=== PATIENT | male | born 1980 | race Caucasian/White ===

== ENCOUNTER 2019-02-17 17:39 | Emergency (ER) | payer SELFPAY ==
[2019-02-17] MEDS ORDERED: HYDROmorphone 1 MG/ML Syringe IM ONE (18:04)
--- NOTE | 2019-02-17 18:09 | EDM.PDOC ---
ED HPI GENERAL MEDICAL PROBLEM - General Chief Complaint: Upper Extremity Injury/Pain Stated Complaint: RIGHT SHOULDER INJURY Time Seen by Provider: 02/17/19 18:00 Source of Information: Reports: Patient, Old Records, RN History Limitations: Reports: No Limitations - History of Present Illness INITIAL COMMENTS - FREE TEXT/NARRATIVE: 38 yo male fell while playing basketball directly onto the R shoulder. Has pain now to the proximal humerus area. No tx prior to arrival. Injury just prior to arrival. 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: Other (see below) (none) Right Shoulder Pain Score (Numeric/FACES): 6 - Related Data Allergies Allergy/AdvReac Type Severity Reaction Status Date / Time No Known Allergies Allergy Verified 02/17/19 17:51 Home Meds: Home Meds NK [No Known Home Meds] 02/17/19 [History] Past Medical History HEENT History: Reports: Impaired Vision Gastrointestinal History: Reports: None Neurological History: Reports: Concussion Endocrine/Metabolic History: Reports: Obesity/BMI 30+ - Past Surgical History Head Surgeries/Procedures: Reports: None HEENT Surgical History: Reports: None GI Surgical History: Reports: Appendectomy Endocrine Surgical History: Reports: None Neurological Surgical History: Reports: None Musculoskeletal Surgical History: Reports: Shoulder Surgery Dermatological Surgical History: Reports: None Social & Family History - Tobacco Use Smoking Status *Q: Never Smoker Second Hand Smoke Exposure: No - Caffeine Use Caffeine Use: Reports: Soda - Recreational Drug Use Recreational Drug Use: No Review of Systems - Review of Systems Review Of Systems: See Below Constitutional: Reports: No Symptoms Musculoskeletal: Reports: Joint Pain (R shoulder) Skin: Reports: No Symptoms Neurological: Reports: No Symptoms ED EXAM, GENERAL - Physical Exam Exam: See Below Exam Limited By: No Limitations General Appearance: Alert, WD/WN, No Apparent Distress Extremities: Normal Inspection, No Pedal Edema, Limited Range of Motion (of R shoulder due to pain. ), Other (Proximal deltoid pain on R). No: Normal Range of Motion, Non-Tender, Pedal Edema, Joint Swelling, Increased Warmth Neurological: Alert, Oriented, CN II-XII Intact, Normal Cognition, No Motor/ Sensory Deficits Psychiatric: Normal Affect, Normal Mood Skin Exam: Warm, Dry, Intact, Normal Color, No Rash Course - Vital Signs Last Recorded V/S: Last Vital Signs Temp 36.2 C 02/17/19 17:52 Pulse 103 H 02/17/19 17:52 Resp 16 02/17/19 17:52 BP 149/96 H 02/17/19 17:52 Pulse Ox 95 02/17/19 17:52 - Orders/Labs/Meds Orders: Active Orders 24 hr Category Date Time Status Shoulder Comp Rt [CR] Stat Exams 02/17/19 18:18 Ordered Meds: Medications Discontinued Medications Generic Name Dose Route Start Last Admin Trade Name Viktoriya PRN Reason Stop Dose Admin Hydromorphone HCl 1 mg 02/17/19 18:04 02/17/19 18:09 Dilaudid IM 02/17/19 18:05 1 mg ONETIME ONE Administration - Radiology Interpretation Free Text/Narrative:: R shoulder X-ray-neg Departure - Departure Time of Disposition: 18:40 Disposition: Home, Self-Care 01 Condition: Fair Clinical Impression: Contusion of right deltoid region Qualifiers: Encounter type: initial encounter Qualified Code(s): S40.011A - Contusion of right shoulder, initial encounter - Discharge Information *PRESCRIPTION DRUG MONITORING PROGRAM REVIEWED*: No *COPY OF PRESCRIPTION DRUG MONITORING REPORT IN PATIENT URI: No Instructions: Shoulder Pain, [id number] Referrals: PCP,None [Primary Care Provider] - Forms: ED Department Discharge Additional Instructions: Wear the sling for support/protection. Take ibuprofen 600 mg every 6 hrs with food for pain relief. Add acetaminophen up to 1000 mg every 6 hrs for added relief. If not able to raise your arm fully by one week, then you need to be rechecked. Sepsis Event Note - Evaluation Sepsis Screening Result: No Definite Risk - Focused Exam Vital Signs: Vital Signs Temp Pulse Resp BP Pulse Ox 02/17/19 17:52 36.2 C 103 H 16 149/96 H 95 02/17/19 17:49 36.2 C 103 H 16 149/96 H 95 Date Exam was Performed: 02/17/19 Time Exam was Performed: 18:31 - My Orders Last 24 Hours: My Active Orders 02/17/19 18:18 Shoulder Comp Rt [CR] Stat - Assessment/Plan Last 24 Hours: My Active Orders 02/17/19 18:18 Shoulder Comp Rt [CR] Stat
--- NOTE | 2019-02-17 18:46 | CRLCR ---
Indication: Trauma and pain Technique: Right shoulder 3 views. Comparison: None Findings: Bones: Alignment is normal. No fractures or bone lesions. Joint spaces: Unremarkable. Soft tissues: Unremarkable. Impression: No sign of acute injury. Dictated by Sage Hui MD @ Feb 17 2019 6:42PM Signed by Dr. Sage Hiu @ Feb 17 2019 6:43PM
== END 2019-02-17 19:01 | disposition home or self-care (01) ==
LOC: JP.ED 17:39
DX: S40.011A Contusion of right shoulder, initial encounter (principal); E66.9 Obesity, unspecified; Z68.35 Body mass index [BMI] 35.0-35.9, adult; W19.XXXA Unspecified fall, initial encounter; Y93.67 Activity, basketball
CPT/HCPCS: 73030; 96372; 99283; J1170; 99282